=== PATIENT | female | born 1965 | race Caucasian/White ===

== ENCOUNTER 2020-09-08 21:38 | Emergency (ER) | payer OTHER ==
[~2020-09-08] VITALS: Ht 162.6 cm; Wt 61.2 kg
[~2020-09-08 21:38] MED LIST: ALBU90I INH; ALBU90OI INH; ALPR.5; ALPR.5 PO; CALCAVITDA; CARI350 PO; CHLO25 PO; CODBUTACEC; CODBUTACEC PO; CODBUTASA PO; CYCL10 PO; DIPH50 PO; DULO60 PO; ESTR1; ESTR2; ESTR2 PO; FLUO20; FLUO20 PO; HYDACE5 PO; IBUP800 PO; LEVSOD50 PO; LORA1 PO; META400 PO; METO25ER PO; MULVITMINF PO; NAPR500EC PO; OMEP20ER PO; OXYACE5T PO; PRED20 PO; PROC10; PROC10 PO; PROM25 PO; PROZAC; PYRI100; RXCODACET PO; RXHYDACE PO; RXLORA1 PO; RXMETA400 PO; RXTRAM50 PO; SYNTHROID; TRAM50 PO; ZOLM5; ZOLM5 PO
[2020-09-08] MEDS ORDERED: CIPHYDOTSU TOP (21:54)
[2020-09-08] MEDS ORDERED: Cleocin HCl300 MG PO (21:54)
== END 2020-09-08 22:05 | disposition home or self-care (01) ==
LOC: ER 21:38
DX: H72.91 Unspecified perforation of tympanic membrane, right ear (principal); K04.7 Periapical abscess without sinus
CPT/HCPCS: 99282

== ENCOUNTER 2020-10-18 19:20 | Emergency (ER) | payer OTHER ==
[~2020-10-18] VITALS: Ht 160 cm; Wt 61.2 kg
[~2020-10-18 19:20] MED LIST changes: +CIPHYDOTSU TOP; +Cleocin HCl300 MG PO
== END 2020-10-18 21:07 | disposition home or self-care (01) ==
LOC: ER 19:20
DX: U07.1 COVID-19 (principal); Z88.0 Allergy status to penicillin; Z88.5 Allergy status to narcotic agent; Z79.899 Other long term (current) drug therapy
CPT/HCPCS: 99283; A9270

== ENCOUNTER → 2020-11-25 | Outpatient (CLI) | payer OTHER ==
[2020-11-27 17:58] LABS: CORONAVIRUS (COVID19) CSH-NRL Negative (Negative)
== END | disposition home or self-care (01) ==
LOC: LAB 19:06 → LAB SHORT 19:06
PROVIDERS: Chiropractor
DX: Z20.822 Contact with and (suspected) exposure to COVID-19 (principal)
CPT/HCPCS: U0003

== ENCOUNTER → 2021-01-03 | Outpatient (CLI) | payer OTHER ==
[2021-01-03 20:06] LABS: Alanine Aminotransfer (ALT/SGP 22 U/L (12-78); Albumin, Blood 4.2 g/dL (3.4-5.0); Albumin/Globulin Ratio 1.2 (0.8-1.8); Alk Phos 112 U/L (50-136); Anion Gap 4 mmol/L (6-16); Aspartate Aminotrans (AST/SGOT 21 U/L (12-37); Bilirubin, Direct <0.1 mg/dL (0.0-0.3); Bilirubin, Indirect Unable to Calculate mg/dL (0.1-0.7); Bilirubin, Total 0.3 mg/dL (0.1-1.0); Blood Urea Nitrogen 12 mg/dL (8-24); Bun/Creatinine Ratio 14.6 (12.0-20.0); CO2, Blood 28 mmol/L (21-32); Calcium, Blood 9.2 mg/dL (8.5-10.1); Chloride, Blood 105 mmol/L (98-108); Creatinine, Blood 0.82 mg/dL (0.40-1.00); Globulin, Blood 3.4 g/dL (2.2-4.0); Glomerular Filtration Rate >60 (60-); Glucose, Blood 84 mg/dL (70-99); Potassium, Blood 4.3 mmol/L (3.5-5.5); Sodium, Blood 137 mmol/L (136-145); Total Protein, Blood 7.6 g/dL (6.4-8.2)
[2021-01-06 02:11] LABS: HBSAG SCREEN Negative (Negative); HEP A AB, IGM Negative (Negative); HEP B CORE AB, TOT Negative (Negative); HEP C VIRUS AB <0.1 (0.0-0.9)
[2021-01-07 09:10] LABS: HEPATITIS C QUANTITATION HCV Not Detected IU/mL (.)
== END | disposition home or self-care (01) ==
LOC: LAB SHORT 18:00 → LAB 18:00
PROVIDERS: Nurse Practitioner Family
DX: Z11.59 Encounter for screening for other viral diseases (principal)
CPT/HCPCS: 80053; 82248; 86592; 86704; 86708; 86803; 87340

== ENCOUNTER → 2021-03-15 | Outpatient (CLI) | payer OTHER ==
[2021-03-15 14:06] LABS: Candida species (DNA Probe) Negative (NEGATIVE); G. vaginalis (DNA Probe) Negative (NEGATIVE); T. vaginalis (DNA Probe) Negative (NEGATIVE)
== END | disposition home or self-care (01) ==
LOC: LAB SHORT 09:45
PROVIDERS: Nurse Practitioner
DX: R30.9 Painful micturition, unspecified (principal)
CPT/HCPCS: 87086; 87480; 87510; 87660

== ENCOUNTER → 2021-12-26 | Outpatient (CLI) | payer OTHER | END | disposition home or self-care (01) | LOC: LAB SHORT 07:43 → PLD 07:43 | DX: L60.2 Onychogryphosis (principal); B35.1 Tinea unguium | CPT/HCPCS: 88305; 88312 ==

== ENCOUNTER 2022-05-12 11:21 | Day surgery (SDC) | payer OTHER ==
[~2022-05-12] VITALS: Ht 162.6 cm; Wt 74.7 kg
[2022-05-12] MEDS ORDERED: VENL75ER PO (12:19)
[2022-05-12] MEDS ORDERED: OMEP20ER PO (12:19)
[2022-05-12] MEDS ORDERED: PROP10 PO (12:20)
[2022-05-12] MEDS ORDERED: THERA-D2000 UNIT PO (12:21)
[2022-05-12] MEDS ORDERED: ZYRTEC10 M4 PO (12:21)
[2022-05-12] MEDS ORDERED: ZOLM5 (12:22)
[2022-05-12] MEDS ORDERED: ONDA4ODT (12:22)
--- NOTE | 2022-05-12 13:11 | NUR ---
05/12/22 1311 Latha Leavitt PILLOW UNDER HEAD, ARMS SECURED ON PADDED ARM BOARDS.
--- NOTE | 2022-05-12 16:29 | NUR ---
05/12/22 1629 Erna Cleary 1620: PATIENT STATES PAIN IS TOLERABLE AND EXPRESSES READINESS TO GO HOME. PT STATES NAUSEA HAS IMPROVED AFTER ALEXEY MIST AND SALTINES.
== END 2022-05-12 16:27 | disposition home or self-care (01) ==
LOC: ORSCSDS 11:21
PROVIDERS: Podiatrist Foot & Ankle Surgery
PROC: 0QSN04Z Reposition Right Metatarsal with Internal Fixation Device, Open Approach (ICD-10-PCS; principal; 2022-05-12 12:45)
PROC: 0Q8N0ZZ Division of Right Metatarsal, Open Approach (ICD-10-PCS; principal; 2022-05-12 12:45)
PROC: 0QSQ04Z Reposition Right Toe Phalanx with Internal Fixation Device, Open Approach (ICD-10-PCS; principal; 2022-05-12 12:45)
DX: M20.11 Hallux valgus (acquired), right foot (principal); M77.41 Metatarsalgia, right foot; E03.9 Hypothyroidism, unspecified; K21.9 Gastro-esophageal reflux disease without esophagitis; Z79.899 Other long term (current) drug therapy
CPT/HCPCS: C1713; J0171; J1100; J2001; J2250; J2405; J2704; J2795; J3010; J7120

== ENCOUNTER 2022-07-18 21:29 | Emergency (ER) | payer OTHER ==
[~2022-07-18] VITALS: Ht 162.6 cm; Wt 86.2 kg
[~2022-07-18 21:29] MED LIST changes: +ONDA4ODT; +PROP10 PO; +THERA-D2000 UNIT PO; +VENL75ER PO; +ZYRTEC10 M4 PO
[2022-07-18 21:34] VITALS: BP 125/88
== END 2022-07-18 22:38 | disposition home or self-care (01) ==
LOC: ER 21:29
DX: S62.613A Displaced fracture of proximal phalanx of left middle finger, initial encounter for closed fracture (principal); S92.001A Unspecified fracture of right calcaneus, initial encounter for closed fracture; Z88.0 Allergy status to penicillin; Z88.5 Allergy status to narcotic agent; W01.198A Fall on same level from slipping, tripping and stumbling with subsequent striking against other object, initial encounter
CPT/HCPCS: 29130; 73130; 73630; 99284-25

== ENCOUNTER 2022-07-27 07:50 | Day surgery (SDC) | payer OTHER ==
[~2022-07-27] VITALS: Ht 152.4 cm; Wt 82.0 kg
[2022-07-27] VITALS (16 sets, daily range): BP systolic 101–149; BP diastolic 63–94
[~2022-07-27 07:50] MED LIST changes: +ATOR40TA PO; +BUPRENORPHINE HC2 MG SL; +FLAX PO; +Flonase 0.05% N16 GM; +HYDMOR2 PO; +LYRICA PO; -ONDA4ODT; +ONDA4ODT PO; +OXYM.05NI; +ZEBUTAL 50-3251 EAC1 PO
--- NOTE | 2022-07-27 11:22 | NUR ---
INTO STEP. PT DROWSY, BUT AWAKENS TO VOICE AND IS A&OX4. PT REPORTS 2/10 RIGHT FOOT PAIN. NEW WRAP AND SOFT SPLINT INTACT TO RIGHT LOWER EXTREMITY. CAPILLARY REFILL LESS THAN 3 SECONDS. PT VOIDED VIA BEDPAN WITHOUT DIFFICULTY. PT DENIES NAUSEA. TOLERATING PO FLUIDS WELL.
--- NOTE | 2022-07-27 12:12 | NUR ---
TOOK OVER PATIENT CARE AFTER REPORT WAS RECEIVED.
--- NOTE | 2022-07-27 13:00 | NUR ---
PT ASSISTED WITH GETTING DRESSED AND AMBULATED TO AND FROM THE BATHROOM UTILIZING HER SCOOTER. PT FRIEND CHARLOTTE AT BEDSIDE. WHEN RN PREPARING TO REVIEW DISCHARGE INSTRUCTIONS WITH PATIENT AND HER FRIEND, PT VERBALIZED THAT DR. FINCH HAD WANTED HER TO GO TO REHAB FOR A COUPLE OF WEEKS. PT FRIEND CHARLOTTE STATED "WHY DON'T YOU DO THAT?" PT APPEARS EXTREMELY ANXIOUS. CHARLOTTE VERBALIZED HER CONCERN REGARDING PT SAFETY PT HAS ALREADY FALLEN AT HOME AND SHE HAS NO ON AT HOME TO HELP HER. PT STATES THAT SHE IS WILLING TO GO TO REHAB. DR. FINCH CONTACTED AND GIVEN FULL UPDATE. HOSPITALIST AND CARE MANAGEMENT CONSULTS PLACED. PT TO BE ADMITTED TO DR. COUGHLIN-DR. COUGHLIN AWARE. NURSING COSMETOLOGY PROFESSOR NOTIFIED OF ADMIT AND WORKING ON BED PLACEMENT.
--- NOTE | 2022-07-27 13:25 | NUR ---
DR. COUGHLIN AT BEDSIDE TO EVALUATE PT.
--- NOTE | 2022-07-27 13:52 | NUR ---
Pt rests quietly when not disturbed. Pt denies need for pain med at this time. Awaiting bed placement.
--- NOTE | 2022-07-27 14:14 | NUR ---
Report phoned to [facility] in prep to transfer pt to room 229.
[2022-07-27 14:55] LABS: Hematocrit 38.2 % (33.0-51.0); Hemoglobin 12.3 g/dL (11.5-16.0); Mean Corpuscular HGB 29.4 pg (26.0-34.0); Mean Corpuscular HGB Conc 32.2 g/dL (31.5-36.5); Mean Corpuscular Volume 91 fL (80-100); Mean Platelet Volume 9.6 fL (9.1-12.4); Platelet Count 353 K/mm3 (150-400); RDW Coefficient Variation 12.6 % (11.7-14.2); RDW Standard Deviation 41.7 fL (35.1-46.3); Red Blood Cell Count 4.18 M/mm3 (3.80-5.20)
[2022-07-27 15:16] LABS: Bun/Creatinine Ratio 19.7 (12.0-20.0); Calcium, Blood 9.2 mg/dL (8.5-10.1); Creatinine, Blood 0.86 mg/dL (0.40-1.00); Potassium, Blood 3.9 mmol/L (3.5-5.5)
--- NOTE | 2022-07-27 16:50 | NUR ---
1445 ARRIVED TO ROOM, PT UP TO COMMODE. PT DOES NOT FOLLOW VERBAL INSTRUCTIONS FOR TRANSFERRING FROM BED TO COMMODE. PT TRANSFERRED SELF FROM COMMODE TO KNEE SCOOTER AND REQUESTS TO SIT IN CHAIR. DISCUSSED WITH PT BENEFITS OF ELEVATING RLE AND ICING TO LESSEN PAIN AND SWELLING.
--- NOTE | 2022-07-27 17:59 | NUR ---
PT DENIES NUMBNESS OR TINGLING OF RLE, ABLE TO MOVE TOES SPONTANEOUSLY. TOES PINK WITH IMMEDIATE CAPILLARY REFILL. SPLINT TO RLE CLEAN AND INTACT WITHOUT DRAINAGE. PT REPORTS LEFT THIRD AND FOURTH FINGERS PAINFUL AND THAT SHE BROKE THEM WHEN FELL AT HOME. PT INSTRUCTED TO KEEP RIGHT LEG ELEVATED WITH ICE IN PLACE, PT AT TIMES WITH FEET HANGING OVER EDGE OF BED. PT ASSISTED SELF BACK TO BED FROM COMMODE AFTER HAD BEEN INSTRUCTED TO CALL FOR ASSIST TO PREVENT FALLS.
--- NOTE | 2022-07-27 19:34 | NUR ---
1830 PT TELLS ME HER FRIEND WENT TO [facility] AND CHART DISCHARGE MEDS AND THAT SHE WAS PRESCRIBED AN ANTIBIOTIC THAT HAS NOT BEEN PRESCRIBED WHILE IN HOSPITAL. PT REQUESTS DILAUDID FOR PAIN. SPOKE TO DR FINCH REGARDING PT REQUESTS AND NEW ORDERS RECEIVED
--- NOTE | 2022-07-27 19:36 | NUR ---
1834 UPDATED PATIENT ON MEDICATIONS AND THAT PLAN WILL BE FOR DISCHARGE IN AM AND TO FOLLOW UP WITH DR FINCH AN OUTPATIENT PT TELLS ME SHE WANTS TO GO TO SNF AND THAT SHE CANT GO HOME. DISCUSSED WITH PATIENT THAT PT HAD BEEN IN TO WORK WITH HER AND SHE HAD DECLINED THERAPY AND WAS PLANNING TO DISCHARGE TO HOME SHE HAD BEEN USING KNEE SCOOTER SINCE MAR AND DID NOT REQUIRE ASISSTANCE. PT TELLS ME SHE WANTS TO GO TO SNF AND THAT SHE WAS "STONED OUT OF HER MIND" AND DOES NOT RECALL ANYONE COMING IN TO WORK WITH HER OR ANYONE TELLING HER THAT THE PLAN WAS TO DISCHARGE IN MORNING. PT STAES "PHYSICAL THERAPY NEEDS TO COME SEE ME NOW" DISCUSSED WITH PATIENT THAT PT IS NOT IN HOSPITAL AT THIS TIME AND HER CONCERNS CAN BE DISCUSSED WITH PHYSICIAN MAKING ROUNDS TOMORROW
--- NOTE | 2022-07-27 21:57 | NUR ---
WHILE ASSISTING PATIENT INTO BED THIS RN NOTICED A BAG OF PILLS IN PATIENTS POSSESSIONS, AND NOTED WAS A PILL BOTTLE. PATIENT REPORTED THESE TO BE HER TYLENOL AND STOOL SOFTENERS. THIS RN EDUCATED PATIENT ON DANGERS OF TAKING PATIENTS HOME MEDS. PATIENT AGREED NOT TO TAKE ANY OF HER HOME MEDICATIONS SHE BROUGHT WITH HER. PATIENT IS AOX4, CALL LIGHT IS IN REACH.
--- NOTE | 2022-07-27 23:38 | NUR ---
HOME MEDS PATIENT NOTIFIED OF HOME MEDICATION POLICY AND NEED TO VERIFY WITH PHARMACY THE MEDICATIONS THAT PATIENT BROUGHT FROM HOME. PATIENT WAS AGREEABLE TO THIS, MEDICATIONS WERE SENT TO PHARMACY, RECIEPT FOR HOME MEDICATIONS IS LOCKED IN PATIENTS DRAWER. PATIENT WAS MEDICATED FOR PAIN PER EMAR ORDERS. PATIENT NOTIFIED THIS RN THAT "I DO NOT WANT TO GO TO REHAB, I WANT TO DO OUTPATIENT THERAPY AND GO HOME TOMORROW". THIS RN NOTIFED PATIENT TO TALK WITH CARE MANAGEMENT TOMORROW AND DISCUSS OPTIONS OF DISHCARGE. THERE IS A CARE MANAGEMENT CONSULT. VERIFIED NEEDS WERE MET AT THIS TIME. CALL LIGHT IS IN REACH.
--- NOTE | 2022-07-28 02:44 | NUR ---
UPDATE PATIENT IN ROOM WITH NEW WRAP OFF OF RLE, SCRATCHING R HEEL AND TRYING TO STUFF TISSUE IN THE SPLINT. HEEL UNDER SPLINT NOTED TO HAVE BLOODY DRAINAGE. THIS RN CALLED [facility] FOR [facility]IN MANAGEMENT, ORDER FOR TORADOL AND FENT. RECIEVED. THIS RN PUT GAUZE UNDER HEEL TO REINFORCE SITE, RE-WRAPPED SPLINT WITH COTTON ROLL FOR PADDING AND CLEAN NEW WRAP. PATIENT EDUCATED ON NOT SCRATCHING OR UNWRAPPIONG DRESSING TO PREVENT INFECTION. MEDICATED PATIENT WITH ONE TIME DOSE OF TORADOL. CALL LIGHT IN REACH, ALL NEEDS MET AT THIS TIME.
[2022-07-28 03:34] VITALS: BP 106/74
--- NOTE | 2022-07-28 05:35 | NUR ---
SUMMARY NO ACUTE EVENTS SINCE LAST NOTE, PATIENT IS RESTING COMFORTABLY AT THIS TIME, VSS, CALL LIGHT IN REACH. WILL REPORT TO DAY RN.
[2022-07-28 07:43] VITALS: BP 104/67
[2022-07-28] MEDS ORDERED: Erythromycin250 MG PO (08:34)
[2022-07-28] MEDS ORDERED: Acetaminophen325 M1 PO (08:38)
[2022-07-28] MEDS ORDERED: IBUP200 PO (08:39)
[2022-07-28] MEDS ORDERED: MIRALAX1714 PO (09:04)
[2022-07-28] MEDS ORDERED: ASPI325 PO (09:04)
--- NOTE | 2022-07-28 09:46 | NUR ---
IV DISCONTINUED WITH TIP INTACT. INTERVENTION WILL NOT ALLOW ME TO DOCUMENT
--- NOTE | 2022-07-28 09:57 | NUR ---
0740 PT AWAKENED FROM SLEEP BY VERBAL STIMULI, DC REQUESTING PAIN MED FOR RIGHT ANKLE THROBBING. RLE WITH ICE PLACED BEHIND RIGHT KNEE AND ELEVATED ON 3 PILLOWS. PT STATES "I WANT TO BE DISCHARGED HOME" PHONE CALL TO DR STILL REGARDING PT REQUEST FOR DISCHARGE
== END 2022-07-28 14:40 | disposition home health service (06) ==
LOC: SURS 07:50 → ORSCMMR 07:50 → ORD 08:50 → ORSCMMR 08:50 → SURS 14:28 → ORSCMMR 07-28 14:40
PROVIDERS: Internal Medicine; Podiatrist Foot & Ankle Surgery
PROC: 0QSL04Z Reposition Right Tarsal with Internal Fixation Device, Open Approach (ICD-10-PCS; principal; 2022-07-27 08:50)
DX: S92.001A Unspecified fracture of right calcaneus, initial encounter for closed fracture (principal); W18.2XXA Fall in (into) shower or empty bathtub, initial encounter; J44.9 Chronic obstructive pulmonary disease, unspecified; Z87.891 Personal history of nicotine dependence; E03.9 Hypothyroidism, unspecified; F41.8 Other specified anxiety disorders; K21.9 Gastro-esophageal reflux disease without esophagitis; Z79.899 Other long term (current) drug therapy
CPT/HCPCS: 36415; 80048; 85027; 94760; A9270; C1713; C1769; J0690; J1100; J1170; J1885; J2060; J2250; J2405; J2704; J3010; J7120; S0077

== ENCOUNTER → 2023-07-06 | Outpatient (CLI) | payer OTHER ==
[~2023-07-06] MED LIST changes: +ASPI325 PO; +Acetaminophen325 M1 PO; +Erythromycin250 MG PO; +IBUP200 PO; +MIRALAX1714 PO
[2023-07-06 14:56] LABS: BASOPHILS ABSOLUTE AUTO 0.08 K/mm3 (0.00-0.23); BASOPHILS PERCENT AUTO 1 % (0-2); EOSINOPHILS PERCENT AUTO 5 % (0-6); Hematocrit 36.4 % (33.0-51.0); Hemoglobin 11.8 g/dL (11.5-16.0); IMMATURE GRAN ABSOLUTE AUTO 0.02 K/mm3 (0.00-0.10); IMMATURE GRAN PERCENT AUTO 0 % (0-1); LYMPHOCYTES ABSOLUTE AUTO 1.73 K/mm3 (0.84-5.20); LYMPHOCYTES PERCENT AUTO 21 % (21-46); MONOCYTES ABSOLUTE AUTO 0.82 K/mm3 (0.16-1.47); MONOCYTES PERCENT AUTO 10 % (4-13); Mean Corpuscular HGB Conc 32.4 g/dL (31.5-36.5); Mean Corpuscular Volume 83 fL (80-100); Mean Platelet Volume 10.9 fL (9.1-12.4); NEUTROPHILS ABSOLUTE AUTO 5.27 K/mm3 (1.96-9.15); NEUTROPHILS PERCENT AUTO 63 % (41-73); Platelet Count 357 K/mm3 (150-400); RDW Coefficient Variation 14.7 % (11.7-14.2); RDW Standard Deviation 44.7 fL (35.1-46.3); Red Blood Cell Count 4.37 M/mm3 (3.80-5.20); White Blood Cell Count 8.32 K/mm3 (4.00-11.30)
[2023-07-06 16:28] LABS: Albumin, Blood 3.6 g/dL (3.4-5.0); Albumin/Globulin Ratio 1.1 (0.8-1.8); Bilirubin, Total 0.5 mg/dL (0.1-1.0); Bun/Creatinine Ratio 25.3 (12.0-20.0); Calcium, Blood 9.2 mg/dL (8.5-10.1); Creatinine, Blood 0.63 mg/dL (0.40-1.00); Globulin, Blood 3.4 g/dL (2.2-4.0); Potassium, Blood 3.9 mmol/L (3.5-5.5)
== END | disposition home or self-care (01) ==
LOC: LAB SHORT 13:20 → LAB 13:20
PROVIDERS: Family Medicine
DX: E86.0 Dehydration (principal)
CPT/HCPCS: 80053; 85025

== ENCOUNTER 2024-07-27 09:52 | Emergency (ER) | payer OTHER ==
[~2024-07-27] VITALS: Ht 162.6 cm; Wt 70.3 kg
[~2024-07-27 09:52] MED LIST changes: +BLACK DRAUGHT; +BUPRENORPHINE HC8 MG SL; +Cyclobenzaprine5 MG PO; +DICLOFENAC SODI50 GM; +Keflex250 MG PO; +MELATONIN12 MG PO; +MELO7.5 PO; +Methocarbamol500 MG PO; +NICO2 PO; +Nicotine Gum4 MG BC; +OMEP20ER; +ONDA4ODT; +OXYC5; +PREG150 PO; +PREGABALIN75 MG PO; +VENLAFAXINE HC225 MG PO; +ZOLMITRIPTAN5 MG PO
[2024-07-27 10:05] VITALS: BP 1128/9
[2024-07-27 10:43] LABS: BASOPHILS ABSOLUTE AUTO 0.07 K/mm3 (0.00-0.23); BASOPHILS PERCENT AUTO 1 % (0-2); EOSINOPHILS ABSOLUTE AUTO 0.11 K/mm3 (0.00-0.68); EOSINOPHILS PERCENT AUTO 2 % (0-6); Hematocrit 36.7 % (33.0-51.0); Hemoglobin 12.7 g/dL (11.5-16.0); IMMATURE GRAN ABSOLUTE AUTO 0.03 K/mm3 (0.00-0.10); IMMATURE GRAN PERCENT AUTO 1 % (0-1); LYMPHOCYTES ABSOLUTE AUTO 0.79 K/mm3 (0.84-5.20); LYMPHOCYTES PERCENT AUTO 14 % (21-46); MONOCYTES ABSOLUTE AUTO 0.38 K/mm3 (0.16-1.47); MONOCYTES PERCENT AUTO 7 % (4-13); Mean Corpuscular HGB 31.3 pg (26.0-34.0); Mean Corpuscular HGB Conc 34.6 g/dL (31.5-36.5); Mean Corpuscular Volume 90 fL (80-100); NEUTROPHILS ABSOLUTE AUTO 4.32 K/mm3 (1.96-9.15); NEUTROPHILS PERCENT AUTO 76 % (41-73); RDW Coefficient Variation 13.2 % (11.7-14.2); RDW Standard Deviation 44.4 fL (35.1-46.3); Red Blood Cell Count 4.06 M/mm3 (3.80-5.20)
[2024-07-27 10:53] LABS: Albumin/Globulin Ratio 1.3 (0.8-1.8); Bilirubin, Total 0.3 mg/dL (0.1-1.0); Bun/Creatinine Ratio 13.7 (12.0-20.0); Calcium, Blood 8.9 mg/dL (8.5-10.1); Creatinine, Blood 0.88 mg/dL (0.40-1.00); Globulin, Blood 3.1 g/dL (2.2-4.0); Potassium, Blood 3.4 mmol/L (3.5-5.5); Total Protein, Blood 7.1 g/dL (6.4-8.2)
[2024-07-27 11:02] LABS: Mean Platelet Volume 10.4 fL (9.1-12.4); Platelet Count 249 K/mm3 (150-400)
== END 2024-07-27 12:40 | disposition home or self-care (01) ==
LOC: ER 09:52
PROVIDERS: Student in an Organized Health Care Education/Training Program
DX: R06.02 Shortness of breath (principal); Z88.0 Allergy status to penicillin; Z88.2 Allergy status to sulfonamides; Z88.5 Allergy status to narcotic agent; Z88.6 Allergy status to analgesic agent; Z79.899 Other long term (current) drug therapy
CPT/HCPCS: 71046; 80053; 83880; 84484; 85025; 99285-25

== ENCOUNTER 2024-08-01 06:23 | Day surgery (SDC) | payer OTHER ==
[~2024-08-01] VITALS: Ht 162.6 cm; Wt 70.6 kg
[2024-08-01] MEDS ORDERED: CeFAZolin Sodium 2,000 MG VIAL ONE (06:46)
[2024-08-01] MEDS ORDERED: Lactated Ringer's 1,000 ML IV ONE ×3 (06:46→08:25)
[2024-08-01] MEDS ORDERED: Bupivacaine 0.5% W/EPI 1:200000 SDV 30 ML Vial ONE (06:49)
[2024-08-01] MEDS ORDERED: TOPI50 (07:05)
[2024-08-01] MEDS ORDERED: Vitamin D1000 UNI1 (07:07)
[2024-08-01] MEDS ORDERED: FLAX (07:07)
[2024-08-01] MEDS ORDERED: propofoL 50 ML IV ONE (07:16)
[2024-08-01] MEDS ORDERED: Rocuronium Bromide 10 MG/ML 5ML Injection IV ONE (07:18)
[2024-08-01] MEDS ORDERED: propofoL 20 ML IV ONE ×2 (07:18→08:56)
[2024-08-01] MEDS ORDERED: FentaNYL Citrate 50 MCG/ML 2 ML Injection ONE ×2 (07:18→08:21)
[2024-08-01] MEDS ORDERED: Midazolam HCl 1MG / ML 2ML Vial ONE (07:18)
--- NOTE | 2024-08-01 07:28 | NUR ---
08/01/24 0728 Dot Bell PT STATES SHE HAD NICOTINE GUM TODAY AT 0400 TO 0630. WAS NOTIFIED AND IS AWARE.
[2024-08-01] MEDS ORDERED: Dexamethasone Sod Phos 10 MG/ML 1ML VIAL ONE (07:31)
[2024-08-01] MEDS ORDERED: Sugammadex Sodium 200 MG/2ML SDV (100 MG/ML) ONE (08:53)
--- NOTE | 2024-08-01 09:44 | NUR ---
08/01/24 0944 GARRETT PERKINS PT STATES PAIN IS 9/10. PT IS TALKING WO DIFF. REQUESTING HER PURSE AND FINDING CHAP STICK. FLACC WOULD SUGGEST PAIN OF 4-5/10. NEEDED "PURPLE BAG" SO SHE COULD FIND BOTTLED WATER.
[2024-08-01] MEDS ORDERED: HYDROmorphone HCl/Pf 1MG SYR ONE (09:49)
[2024-08-01] MEDS ORDERED: OxyCODONE HCL 5 MG TAB ONE (10:24)
[2024-08-01 10:39] VITALS: BP 135/86
== END 2024-08-01 11:11 | disposition home or self-care (01) ==
LOC: ORSCSDS 06:23
PROVIDERS: Podiatrist Foot & Ankle Surgery
PROC: 0QP104Z Removal of Internal Fixation Device from Sacrum, Open Approach (ICD-10-PCS; principal; 2024-08-01 07:30)
PROC: 0SGM04Z Fusion of Right Metatarsal-Phalangeal Joint with Internal Fixation Device, Open Approach (ICD-10-PCS; principal; 2024-08-01 07:30)
DX: M21.611 Bunion of right foot (principal); M77.41 Metatarsalgia, right foot; T84.84XA Pain due to internal orthopedic prosthetic devices, implants and grafts, initial encounter; J44.9 Chronic obstructive pulmonary disease, unspecified; K21.9 Gastro-esophageal reflux disease without esophagitis; Z79.899 Other long term (current) drug therapy
CPT/HCPCS: A9270; C1713; J0690; J1100; J1171; J2250; J2704; J3010; J7120

== ENCOUNTER 2025-01-11 01:56 | Emergency (ER) | payer MEDICARE, OTHER ==
[~2025-01-11] VITALS: Ht 162.6 cm; Wt 70.8 kg
[~2025-01-11 01:56] MED LIST changes: +FLAX; +TOPI50; +Vitamin D1000 UNI1
[2025-01-11 02:04] VITALS: BP 160/111
[2025-01-11] MEDS ORDERED: VALA500 PO (02:28)
== END 2025-01-11 02:24 | disposition home or self-care (01) ==
LOC: ER 01:56
DX: B00.1 Herpesviral vesicular dermatitis (principal); I10 Essential (primary) hypertension; Z88.0 Allergy status to penicillin; Z88.2 Allergy status to sulfonamides; Z88.5 Allergy status to narcotic agent; Z88.6 Allergy status to analgesic agent; Z79.899 Other long term (current) drug therapy
CPT/HCPCS: 99282

== ENCOUNTER → 2025-01-20 | Outpatient (CLI) | payer MEDICARE, OTHER ==
[~2025-01-20] MED LIST changes: +VALA500 PO
[2025-01-20 17:06] LABS: Influenza A/2009-H1 Not Detected (NOT DETECT); SARS-Cov-2 (COVID-19), BioFire Not Detected (NOT DETECT)
== END ==
LOC: LAB SHORT 14:46 → LAB 14:46
PROVIDERS: Student in an Organized Health Care Education/Training Program
DX: J06.9 Acute upper respiratory infection, unspecified (principal)
CPT/HCPCS: 0202U